=== PATIENT | female | born 1960 | race Caucasian/White ===

== ENCOUNTER 2023-04-21 14:13 | Inpatient (IN) ==
[2023-04-21] MEDS ORDERED: Al Hydrox/Mg Hydrox/Simet LIQ 30 ML UDC PO PRN (14:16)
[2023-04-22] MEDS: Cholecalciferol (VIT D3) 1,000 unit TAB PO SCH (13:37)
[2023-04-23 09:03] LABS: HDL Cholesterol 67.5 mg/dL
[2023-04-24] MEDS: Polyethylene Glycol 3350 17 GM PACKET PO SCH (11:13)
[2023-04-25] MEDS: Magnesium CITRATE LIQ 300 ML BTL PO ONE (14:12)
[2023-04-26] MEDS: Senna TAB 8.6 mg TAB PO PRN (22:11)
[2023-04-28] MEDS ORDERED: Polyethylene Glycol 3350 17 GM PACKET PO PRN (13:34)
== END 2023-05-07 14:05 | disposition home or self-care (01) | DRG 753 ==
LOC: BSU 19:23
PROVIDERS: ADMIT Psychiatry & Neurology Psychiatry; ATTEND Psychiatry & Neurology Psychiatry